=== PATIENT | male | born 1995 | race Caucasian/White ===

== ENCOUNTER 2021-10-21 07:19 | Emergency (ER) | payer OTHER ==
[2021-10-21] MEDS ORDERED: Silver Nitrate Applicator Each TOP ONE (07:57)
== END 2021-10-21 08:20 | disposition home or self-care (01) ==
LOC: JP.ED 07:19
DX: R04.0 Epistaxis (principal); I11.0 Hypertensive heart disease with heart failure; I50.9 Heart failure, unspecified; Z87.891 Personal history of nicotine dependence; Z79.899 Other long term (current) drug therapy
CPT/HCPCS: 99283